=== PATIENT | male | born 1960 | race Caucasian/White ===

== ENCOUNTER 2022-01-27 00:28 | Emergency (ER) | payer BC ==
[~2022-01-27] VITALS: Ht 182.9 cm; Wt 82.3 kg
[2022-01-27] MEDS ORDERED: SIRO1TAB4 PO (00:34)
[2022-01-27] MEDS ORDERED: CARV3.12 PO (00:34)
[2022-01-27] MEDS ORDERED: PRED5TA PO (00:34)
[2022-01-27] MEDS ORDERED: LIDOCAINE 2% MDV 20ML VIAL As Ordered ONE (04:34)
[2022-01-27] MEDS ORDERED: LIDOCAINE 2% MDV 20ML VIAL SC ONE (04:45)
[2022-01-27 05:33] VITALS: BP 167/75
== END 2022-01-27 05:35 | disposition home or self-care (01) ==
LOC: M ED 00:28
DX: S81.811A Laceration without foreign body, right lower leg, initial encounter (principal); W22.8XXA Striking against or struck by other objects, initial encounter; Y92.410 Unspecified street and highway as the place of occurrence of the external cause; I10 Essential (primary) hypertension